=== PATIENT | male | born 1985 | race Caucasian/White ===

== ENCOUNTER 2019-09-26 20:46 | Emergency (ER) | payer OTHER ==
[~2019-09-26] VITALS: Ht 185.4 cm; Wt 83.9 kg
== END 2019-09-27 02:19 | disposition home or self-care (01) ==
LOC: ER 20:46
DX: S09.90XA Unspecified injury of head, initial encounter (principal); L23.7 Allergic contact dermatitis due to plants, except food; W22.8XXA Striking against or struck by other objects, initial encounter
CPT/HCPCS: 70450; 96372; 99283-25; J3301; J7512